=== PATIENT | female | born 1980 | race Caucasian/White ===

== ENCOUNTER → 2016-08-20 | Outpatient (CLI) | payer BC ==
[~2016-08-20] MED LIST: MOTRIN 600600 MG/TAB PO; PERCOCET 325 MG1 TA2 PO; PRENATAL1 TA2 PO
== END ==
LOC: BHSO 11:40
DX: F41.1 Generalized anxiety disorder (principal)

== ENCOUNTER → 2016-11-23 | Outpatient (CLI) | payer BC | LOC: BHSO 11:44 | DX: F31.73 Bipolar disorder, in partial remission, most recent episode manic (principal) ==

== ENCOUNTER → 2017-03-25 | Outpatient (CLI) | payer BC | LOC: BHSO 11:36 | DX: F41.1 Generalized anxiety disorder (principal) ==

== ENCOUNTER → 2017-09-23 | Outpatient (CLI) | payer BC | LOC: BHSO 11:20 | DX: F31.81 Bipolar II disorder (principal) | CPT/HCPCS: G0463 ==

== ENCOUNTER → 2018-03-23 | Outpatient (CLI) | payer BC | LOC: BHSO 09:42 | DX: F41.1 Generalized anxiety disorder (principal) | CPT/HCPCS: G0463 ==

== ENCOUNTER → 2018-09-28 | Outpatient (CLI) | payer BC | LOC: BHSO 09:21 | DX: F33.42 Major depressive disorder, recurrent, in full remission (principal) | CPT/HCPCS: G0463 ==

== ENCOUNTER 2019-03-23 16:28 | Emergency (ER) | payer BC ==
[~2019-03-23] VITALS: Ht 172.7 cm; Wt 77.3 kg
[2019-03-23 16:43] VITALS: BP 148/71; TEMP 98.4
[2019-03-23 18:09] VITALS: PULSE 83
== END 2019-03-23 18:09 | disposition home or self-care (01) ==
LOC: COL.ER 16:28
DX: S61.412A Laceration without foreign body of left hand, initial encounter (principal); W26.8XXA Contact with other sharp object(s), not elsewhere classified, initial encounter; Z23 Encounter for immunization

== ENCOUNTER → 2019-03-30 | Outpatient (CLI) | payer BC | LOC: BHSO 09:18 | DX: F33.42 Major depressive disorder, recurrent, in full remission (principal) | CPT/HCPCS: G0463 ==

== ENCOUNTER → 2020-03-28 | Outpatient (CLI) | payer BC | LOC: BHSO 09:01 | DX: F41.1 Generalized anxiety disorder (principal) | CPT/HCPCS: G0463 ==